=== PATIENT | female | born 1955 | race African-American/Black ===

== ENCOUNTER 2017-07-26 11:36 | Emergency (ER) | payer BC ==
[~2017-07-26] VITALS: Ht 170.2 cm; Wt 128.0 kg
[2017-07-26 11:37] VITALS: BP 163/89; PULSE 71; RESP 14; TEMP 98.2; O2SAT 99
[2017-07-26] MEDS ORDERED: LOSA100T PO (12:02)
[2017-07-26] MEDS ORDERED: AMLO10TA2 PO (12:02)
[2017-07-26] MEDS ORDERED: OMEP20TA93 PO (12:02)
[2017-07-26] MEDS ORDERED: multivitamin (12:02)
[2017-07-26] MEDS ORDERED: METO50TA PO (12:02)
[2017-07-26] MEDS ORDERED: FISH500C (12:02)
[2017-07-26] MEDS ORDERED: MECLIZINE HCL 25 MG TAB PO ONE (12:15)
[2017-07-26] MEDS ORDERED: SODIUM CHLORIDE 0.9% FLUSH 10 ML FLUSH IVF PRN (12:15)
[2017-07-26] MEDS ORDERED: SODIUM CHLORID 0.9% 500 ML INJ 500 ML IV ONE (12:15)
[2017-07-26] MEDS ORDERED: ONDANSETRON HCL 4 MG/2 ML VIAL IVP ONE (12:15)
[2017-07-26 12:17] VITALS: BP_SYST 134; BP_SYST 169; BP_DIAS 62; BP_DIAS 98; RESP 20
[2017-07-26 12:18] VITALS: O2SAT 97
--- NOTE | 2017-07-26 12:21 | PD ---
HPI Chief Complaint: Dizziness Time Seen by Provider: 11:59 Travel History International Travel<30 days: No Contact w/Intl Traveler<30days: No Traveled to known affect area: No History of Present Illness HPI 61-year-old female with history of HTN, DREA, TMJ presents to the ED for evaluation of a 24-hour history of dizziness. Patient endorses feeling as if the room is spinning. She states that this is worsened by lying back. She also states it's worse when she stands up but resolves after 10-15 seconds. She denies headache, blurred vision, ear pain, diminished hearing, chest pain, palpitations, shortness of breath, cough, abdominal pain, nausea or vomiting. She endorses 24-hour history of loose stools. She states that she has a history of internal hemorrhoids and occasionally has a little blood in the bowl. She denies dysuria, urinary urgency, back pain. She is followed by primary care in [place]. She endorses compliance with her daily medications. She states that she has a history of vertigo "20 or more years ago " and this is similar. PFSH Past Medical History Cardiovascular Problems: Yes (HTN) Respiratory: Yes (SLEEP APNEA) Social History Tobacco Use: No Allergies-Medications (Allergen,Severity, Reaction): Coded Allergies: No Known Allergies (Unverified , 07/26/17) Reported Meds & Prescriptions Reported Meds & Active Scripts Active Meclizine (Meclizine HCl) 25 Mg Tab 25 Mg PO TID PRN Reported Fish Oil ([place]-3 Fatty Acids) 60 Mg-90 Mg-500 Mg Cap [multivitamin] Metoprolol Tartrate 50 Mg Tab 50 Mg PO DAILY Omeprazole 20 Mg Tab 20 Mg PO BID Amlodipine (Amlodipine Besylate) 10 Mg Tab 10 Mg PO DAILY Losartan (Losartan Potassium) 100 Mg Tab 100 Mg PO DAILY Review of Systems Except as stated in HPI: all other systems reviewed are Neg Physical Exam Narrative GENERAL: [place]-nourished, well-developed pleasant AA female in NAD. SKIN: Focused skin assessment warm/dry. HEAD: Normocephalic. EYES: No scleral icterus. No injection or drainage. ENT: [place] m[place]on tympanic membranes bilaterally. Oropharynx without erythema, edema, exudate. NECK: Supple, trachea midline. No JVD or lymphadenopathy. CARDIOVASCULAR: Regular rate and rhythm without murmurs, gallops, or rubs. RESPIRATORY: Breath sounds clear and equal bilaterally. No accessory muscle use. GASTROINTESTINAL: Abdomen soft, non-tender, nondistended. Active bowel sounds. MUSCULOSKELETAL: No cyanosis, or edema. NEUROLOGICAL: Awake and alert. Cranial nerves II through XII intact. Motor and sensory grossly within normal limits. Five out of 5 muscle strength in all muscle groups. Normal speech. BACK: Nontender without obvious deformity. No CVA tenderness. Data Data Last Documented VS Vital Signs Date Time Temp Pulse Resp B/P (MAP) Pulse Ox O2 Delivery O2 Flow Rate FiO2 07/26/17 12:18 97 Nasal Cannula 2.00 07/26/17 12:17 80 20 80 20 07/26/17 11:37 98.2 Orders Orders Electrocardiogram (07/26/17 ) Electrocardiogram (07/26/17 12:08) Complete Blood Count With Diff (07/26/17 12:08) Comprehensive Metabolic Panel (07/26/17 12:08) Magnesium (Mg) (07/26/17 12:08) Ckmb (Isoenzyme) Profile (07/26/17 12:08) Troponin I (07/26/17 12:08) Act Partial Throm Time (Ptt) (07/26/17 12:08) Prothrombin Time / Inr (Pt) (07/26/17 12:08) Urinalysis - C+S If Indicated (07/26/17 12:08) Chest, Single Ap (07/26/17 12:08) Ct Brain W/O Iv Contrast(Rout) (07/26/17 12:08) Ecg Monitoring (07/26/17 12:08) Iv Access Insert/Monitor (07/26/17 12:08) Oximetry (07/26/17 12:08) Meclizine (Antivert) (07/26/17 12:15) Ondansetron Inj (Zofran Inj) (07/26/17 12:15) Sodium Chloride 0.9% Flush (Ns Flush) (07/26/17 12:15) Sodium Chlorid 0.9% 500 Ml Inj (Ns 500 M (07/26/17 12:15) Orthostatic Vital Signs (07/26/17 12:10) Ed Discharge Order (07/26/17 14:07) Labs Laboratory Tests Test 07/26/17 12:25 White Blood Count 6.2 TH/MM3 Red Blood Count 4.63 MIL/MM3 Hemoglobin 14.1 GM/DL Hematocrit 40.1 % Mean Corpuscular Volume 86.6 FL Mean Corpuscular Hemoglobin 30.4 PG Mean Corpuscular Hemoglobin Concent 35.1 % Red Cell Distribution Width 15.3 % Platelet Count 258 TH/MM3 Mean Platelet Volume 8.9 FL Neutrophils (%) (Auto) 49.2 % Lymphocytes (%) (Auto) 40.5 % Monocytes (%) (Auto) 7.9 % Eosinophils (%) (Auto) 1.5 % Basophils (%) (Auto) 0.9 % Neutrophils # (Auto) 3.1 TH/MM3 Lymphocytes # (Auto) 2.5 TH/MM3 Monocytes # (Auto) 0.5 TH/MM3 Eosinophils # (Auto) 0.1 TH/MM3 Basophils # (Auto) 0.1 TH/MM3 CBC Comment DIFF FINAL Differential Comment Prothrombin Time 10.1 SEC Prothromb Time International Ratio 0.9 RATIO Activated Partial Thromboplast Time 25.9 SEC Urine Color YELLOW Urine Turbidity CLEAR Urine pH 6.5 Urine Specific [place] 1.024 Urine Protein NEG mg/dL Urine Glucose (UA) NEG mg/dL Urine Ketones NEG mg/dL Urine Occult Blood NEG Urine Nitrite NEG Urine Bilirubin NEG Urine Urobilinogen 2.0 MG/DL Urine Leukocyte Esterase TRACE Urine RBC 1 /hpf Urine WBC 1 /hpf Urine Squamous Epithelial Cells 5 /hpf Urine Transitional Epithelial Cells <1 /hpf Urine Bacteria OCC /hpf Urine Mucus FEW /lpf Microscopic Urinalysis Comment CULT NOT INDICATED Blood Urea Nitrogen 11 MG/DL Creatinine 0.53 MG/DL Random Glucose 100 MG/DL Total Protein 7.7 GM/DL Albumin 3.3 GM/DL Calcium Level 9.0 MG/DL Magnesium Level 2.1 MG/DL Alkaline Phosphatase 96 U/L Aspartate Amino Transf (AST/SGOT) 16 U/L Alanine Aminotransferase (ALT/SGPT) 18 U/L Total Bilirubin 0.6 MG/DL Sodium Level 141 MEQ/L Potassium Level 3.8 MEQ/L Chloride Level 108 MEQ/L Carbon Dioxide Level 28.0 MEQ/L Anion Gap 5 MEQ/L Estimat Glomerular Filtration Rate 117 ML/MIN Total Creatine Kinase 82 U/L Troponin I LESS THAN 0.02 NG/ML MDM Medical Decision Making Medical Screen Exam Complete: Yes Emergency Medical Condition: Yes Differential Diagnosis Vertigo versus dehydration versus anemia versus less likely ICH versus less likely ACS versus other Narrative Course 61-year-old female with history of HTN, DREA, TMJ presents to the ED for evaluation of a 24-hour history of intermittent dizziness, feeling as if the room is spinning. Worsened by lying back, and standing up but resolves after 10 -15 seconds. She denies BRAR, blurred vision, ear pain, diminished hearing, CP, palpitations, SOB, cough, abdominal pain, N/V. She endorses 24-hour history of loose stools. She has a history of internal hemorrhoids and occasionally has a little blood in the bowl. She denies dysuria, urinary urgency, back pain. She is followed by primary care in [place]. She states that she had an episode of vertigo "20 or more years ago" and this is similar. IV was established. Patient administered 500 mL normal saline IV, 50 mg meclizine by mouth. EKG: rate 66, sinus rhythm. VT interval 205, QRS 72, QTC 369. No acute ST changes. Reviewed by Dr. Jones. CXR: Cardiomegaly without acute intrathoracic process. Troponin: Negative 1 CBC: No leukocytosis or anemia. Coags: INR 0.9. CMP: No concerning abnormalities. UA: No culture indicated. CT brain: Negative exam per radiology read. Orthostatic vitals negative. On recheck the patient reports improvement of her symptoms. I discussed the results of workup with the patient was very reassured. She is prescribed short course of meclizine 3 times a day. She is instructed to follow-up with her primary care provider upon return to [place]. She indicated understanding of the instructions and is agreeable to the care plan. She is stable and discharged home. Diagnosis Primary Impression: Postural dizziness Referrals: Primary Care Physician Patient Instructions: Dizziness (ED), General Instructions Additional Instructions: Rest, hydrate. Return to normal, gentle activity as tolerated. Resume your at-home medications as they are prescribed. Take meclizine as prescribed. Follow-up with your primary care provider upon return home. Return to the ED for any urgent or emergent medical condition. Med/Other Pt SpecificInfo: Prescription(s) given Scripts Meclizine (Meclizine) 25 Mg Tab 25 MG PO TID Y for VERTIGO, #15 TAB 0 Refills Prov: Maura Jones 07/26/17 Disposition: 01 DISCHARGE HOME Condition: Stable Zulema Guerra Jul 26, 2017 12:21
[2017-07-26 12:50] LABS: AUTOMATED NEUTROPHIL # 3.1 TH/MM3 (1.8-7.7); BASOPHIL # 0.1 TH/MM3 (0-0.2); BASOPHIL % 0.9 % (0.0-2.0); EOSINOPHIL # 0.1 TH/MM3 (0-0.4); EOSINOPHIL % 1.5 % (0.0-4.0); HEMATOCRIT 40.1 % (35.0-46.0); HEMO FLAGS DIFF FINAL; LYMPH % 40.5 % (9.0-44.0); LYMPHOCYTE # 2.5 TH/MM3 (1.0-4.8); MEAN CELL VOLUME 86.6 FL (80.0-100.0); MEAN CORPUSCULAR HEMOGLOBIN 30.4 PG (27.0-34.0); MEAN CORPUSCULAR HGB CONC 35.1 % (32.0-36.0); MONO % 7.9 % (0.0-8.0); NEUT % 49.2 % (16.0-70.0); PLATELET COUNT 258 TH/MM3 (150-450); RED BLOOD COUNT 4.63 MIL/MM3 (4.00-5.30); RED CELL DISTRIBUTION WIDTH 15.3 % (11.6-17.2); WHITE BLOOD COUNT 6.2 TH/MM3 (4.0-11.0)
[2017-07-26 12:59] LABS: BACTERIA, URINE OCC /hpf; BLOOD, URINE NEG (NEG); COMMENT (UR) CULT NOT INDICATED; CULTURE IF INDICATED CULT NOT INDICATED; GLUCOSE,URINE NEG (NEG); KETONE, URINE NEG (NEG); MUCUS URINE FEW /lpf (OCC); NITRITE,URINE NEG (NEG); PH, URINE 6.5 (5.0-8.5); SQUAMOUS EPITHELIAL CELL URINE 5 /hpf (0-5); TRANSITIONAL EPI CELLS, URINE <1 /hpf; URINE COLOR YELLOW (YELLW/STRAW)
[2017-07-26 13:01] LABS: APTT (PATIENT) 25.9 SEC (24.3-30.1); INTERNATIONAL NORMALIZED RATIO 0.9 RATIO; PROTHROMBIN TIME - PATIENT 10.1 SEC (9.8-11.6)
--- NOTE | 2017-07-26 13:03 | RADRPT ---
EXAM DATE/TIME: 07/26/2017 12:34 [facility] COMPARISON: No previous studies available for comparison. INDICATIONS : Heart palpitations MEDICAL HISTORY : None. SURGICAL HISTORY : None. ENCOUNTER: Initial ACUITY: 1 day PAIN SCORE: 0/10 LOCATION: Bilateral chest FINDINGS: A single view of the chest demonstrates the lungs to be symmetrically aerated without evidence of mas s, infiltrate or effusion. Heart is mildly enlarged.. Osseous structures are intact. CONCLUSION: Cardiomegaly without evidence of acute cardiopulmonary process. Tye Moran MD on July 26, 2017 at 13:01 Board Certified Radiologist. This report was verified electronically.
[2017-07-26 13:10] LABS: ALT (GPT) 18 U/L (10-53); ANION GAP 5 MEQ/L (5-15); AST (GOT) 16 U/L (15-37); BLOOD UREA NITROGEN 11 MG/DL (7-18); CHLORIDE 108 MEQ/L (98-107); GLOMERULAR FILTRATION RATE 117 ML/MIN (>89); MAGNESIUM 2.1 MG/DL (1.5-2.5); POTASSIUM 3.8 MEQ/L (3.5-5.1); SODIUM (NA) 141 MEQ/L (136-145)
[2017-07-26 13:14] LABS: ALKALINE PHOSPHATASE 96 U/L (45-117); TOTAL BILIRUBIN ADULT 0.6 MG/DL (0.2-1.0)
[2017-07-26 13:15] LABS: CREATINE KINASE 82 U/L (26-192)
[2017-07-26] MEDS ORDERED: MECL-62 PO (14:03)
--- NOTE | 2017-07-26 14:03 | RADRPT ---
EXAM DATE/TIME: 07/26/2017 13:35 [facility] COMPARISON: No previous studies available for comparison. INDICATIONS : Dizziness. RADIATION DOSE: 56.35 CTDIvol (mGy) MEDICAL HISTORY : Cardiovascular disease. Hypertension. SURGICAL HISTORY : None. ENCOUNTER: Initial ACUITY: 1 day PAIN SCALE: 0/10 LOCATION: cranial TECHNIQUE: Multiple contiguous axial images were obtained of the head. Using automated exposure control and adj ustment of the mA and/or kV according to patient size, radiation dose was kept as low as reasonably a chievable to obtain optimal diagnostic quality images. DICOM format image data is available electro nically for review and comparison. FINDINGS: CEREBRUM: The ventricles are normal for age. No evidence of midline shift, mass lesion, hemorrhage or acute in farction. No extra-axial fluid collections are seen. POSTERIOR FOSSA: The cerebellum and brainstem are intact. The 4th ventricle is midline. The cerebellopontine angle i s unremarkable. EXTRACRANIAL: The visualized portion of the orbits is intact. SKULL: The calvaria is intact. No evidence of skull fracture. CONCLUSION: Negative exam. Junior Aguilar MD on July 26, 2017 at 14:01 Board Certified Radiologist. This report was verified electronically.
--- NOTE | 2017-07-27 13:04 | EKG ---
Date Performed: 07/26/2017 Time Performed: 12:08:34 PTAGE: 61 years EKG: Sinus rhythm Poor R-wave progression across the precordium, which may be a normal variant Low voltage in precordi al leads Cannot exclude inferior wall myocardial infarction of undetermined age NO PREVIOUS TRACING DOCTOR: Melvin Barry Interpretating Date/Time 07/27/2017 13:04:00
== END 2017-07-26 14:47 | disposition home or self-care (01) ==
LOC: NEPC 11:36
DX: R42 Dizziness and giddiness (principal); I51.7 Cardiomegaly; I10 Essential (primary) hypertension; G47.33 Obstructive sleep apnea (adult) (pediatric); Z79.899 Other long term (current) drug therapy
CPT/HCPCS: 70450; 71010; 80053; 81001; 82550; 83735; 84484; 85025; 85610; 85730; 93005; 96360; 96361; 99285; J7040